=== PATIENT | male | born 1960 | race Caucasian/White ===

== ENCOUNTER 2024-10-17 14:10 | Emergency (ER) | payer OTHER | END 2024-10-17 15:43 | disposition home or self-care (01) | LOC: JD.ED 14:10 | DX: H53.8 Other visual disturbances (principal); I10 Essential (primary) hypertension; Z88.0 Allergy status to penicillin; Z79.899 Other long term (current) drug therapy; Z90.49 Acquired absence of other specified parts of digestive tract | CPT/HCPCS: 99283 ==